=== PATIENT | male | born 1985 | race Two or more races ===

== ENCOUNTER 2021-02-07 13:52 | Emergency (ER) | payer SELFPAY ==
[~2021-02-07] VITALS: Ht 182.9 cm; Wt 99.8 kg
[2021-02-07] MEDS ORDERED: ONDANSETRON ODT 4 MG TAB PO ONE (14:45)
[2021-02-07] MEDS ORDERED: LIDOCAINE 1% HCL (LOCAL ANESTH.) INJ 20ML MDV ONE (17:16)
[2021-02-07] MEDS ORDERED: TETANUS-DIPTH-ACEL PERTUSSIS 0.5ML SYR Tdap IM ONE (17:45)
== END 2021-02-07 19:13 | disposition home or self-care (01) ==
LOC: ER 13:52
DX: S91.312A Laceration without foreign body, left foot, initial encounter (principal); S81.812A Laceration without foreign body, left lower leg, initial encounter; F10.10 Alcohol abuse, uncomplicated; F14.10 Cocaine abuse, uncomplicated; F12.10 Cannabis abuse, uncomplicated; Y90.6 Blood alcohol level of 120-199 mg/100 ml; W25.XXXA Contact with sharp glass, initial encounter; Y93.89 Activity, other specified; Y92.89 Other specified places as the place of occurrence of the external cause; Y99.8 Other external cause status
CPT/HCPCS: 12002; 36415; 73600; 73620; 80320; 99284; J2001; Q0162; 90715